=== PATIENT | female | born 1955 | race Caucasian/White ===

== ENCOUNTER 2020-05-15 07:27 | Outpatient (CLI) | payer MEDICARE, OTHER ==
[2020-05-15 17:57] LABS: SARS-CoV-2 MS2 Positive; SARS-CoV-2 N Gene Negative; SARS-CoV-2 S Gene Negative; SARS-CoV-2 by NAA Not Detected (NotDetected); SARS-CoV-2 orf1ab Negative
== END 2020-05-15 07:28 | disposition home or self-care (01) ==
LOC: LABBT 07:27
PROVIDERS: ATTEND Family Medicine
DX: Z12.11 Encounter for screening for malignant neoplasm of colon (principal); K21.9 Gastro-esophageal reflux disease without esophagitis; E66.3 Overweight; K76.0 Fatty (change of) liver, not elsewhere classified; Z20.828 Contact with and (suspected) exposure to other viral communicable diseases
CPT/HCPCS: 87635; U0003

== ENCOUNTER 2020-05-18 12:14 | Day surgery (SDC) | payer MEDICARE ==
[2020-05-16 11:48] VITALS: BMI 50.3
[~2020-05-18 12:14] MED LIST: PROPOFOL 200 MG/20 ML VIAL ONE
--- NOTE | 2020-05-18 18:36 | OP ---
DATE OF PROCEDURE: 05/18/2020 TITLE OF PROCEDURE: Colonoscopy with snare polypectomy. PREPROCEDURE DIAGNOSES: 1. Colon cancer screening. 2. Distant history of hyperplastic colon polyp. 3. Last colonoscopy in 2004. POSTPROCEDURE DIAGNOSES: 1. Exam to cecum; good bowel preparation. 2. Qhim-or-mqupsilc sigmoid diverticulosis. 3. Two diminutive rectal polyps, removed by cold snare technique. 4. Hypertrophied anal papilla. 5. Small internal hemorrhoids. 6. Otherwise normal colonoscopy. PROCEDURE IN DETAIL: Written informed consent was obtained. Upon completion of the EGD, the patient was repositioned for the colonoscopy. Total intravenous anesthesia was administered by Dr. Lj Sorto. The patient was placed in the left lateral decubitus position. A digital rectal exam was performed, that revealed small perianal tags. A Pentax video colonoscope was inserted through the anal canal and advanced under direct visualization to the cecum. Position in the cecum was verified by clear identification of the ileocecal valve and the appendiceal orifice. The quality of the bowel preparation was good. Each colon segment was examined carefully as the colonoscope was slowly withdrawn from the cecum. Vascular pattern and haustral folds appeared normal. Many [id number] diverticular orifices were noted in the sigmoid colon. There was no evidence of infection or hemorrhage from the diverticula. In the rectum, two diminutive sessile polyps, measuring about 2 to 3 mm in diameter, were identified and removed by cold snare technique. Both polyps were retrieved for histology. No other synchronous polyps were identified. A retroflexed exam in the rectum demonstrated hypertrophied anal papilla and small internal hemorrhoids, that were not actively bleeding. The colon was decompressed as the colonoscope was completely removed from the patient. There were no immediate complications. She was transferred to the day stay surgery area for postprocedure monitoring. RECOMMENDATIONS: 1. Await pathology results. 2. Ask the patient to call me in 1 week for pathology results. 3. Pending pathology results, recommend repeating colonoscopy in 5 to 10 years. 4. High-fiber diet. 5. Resume previous medications. 6. Follow up in GI Clinic in 6 to 8 weeks. Job ID: [id number]
--- NOTE | 2020-05-18 18:40 | OP ---
DATE OF PROCEDURE: 05/18/2020 TITLE OF PROCEDURE: Esophagogastroduodenoscopy with biopsy. PREPROCEDURE DIAGNOSIS: Persistent reflux despite medical therapy. POSTPROCEDURE DIAGNOSES: 1. Exam to second portion of duodenum. 2. A 1 to 2 cm sliding hiatal hernia. 3. No erosive esophagitis or esophageal ulcer identified. 4. Scattered benign-appearing polyps in the fundus and body, biopsied. 5. No gastric ulcer. 6. Normal duodenum. PROCEDURE IN DETAIL: Written informed consent was obtained. The patient was brought to the endoscopy suite. Total intravenous anesthesia was administered by Dr. Danny Sorto. The patient was placed in the left lateral decubitus position. A bite block was inserted into the mouth. A Pentax video diagnostic gastroscope was introduced into the oral cavity and the esophagus was carefully intubated. The gastroscope was advanced under direct visualization to the 2nd portion of the duodenum. Endoscopic findings revealed a small sliding hiatal hernia about 1 to 2 cm in length, located at 35 cm from the incisors. Biopsies were obtained in the lower esophagus just proximal to the hiatal hernia. There was no evidence of esophageal erosion or ulcer. The stomach was then entered and carefully examined. This included a retroflexed view of the cardia and fundus. Numerous small sessile polyps were identified in the gastric fundus and proximal body, consistent with fundic polyps. Multiple biopsies were obtained for histology. No gastric or duodenal ulcer was identified. The retroflexed exam was normal. The duodenum from the bulb to the second portion appeared normal. The stomach was decompressed as the endoscope was completely removed from the patient. There were no immediate complications. She was then repositioned for the colonoscopy. RECOMMENDATIONS: 1. Await biopsy results. 2. Ask the patient to call me in 1 week for biopsy results. 3. Resume previous medications. 4. Add famotidine 20 mg to 40 mg p.o. nightly for the next 6 to 8 weeks. 5. Follow up in GI clinic in 6 to 8 weeks. 6. Advise gradual 20- to 30-pound weight loss as this should also relieve some of the reflux symptoms. Job ID: [id number]
== END 2020-05-18 14:48 | disposition home or self-care (01) ==
LOC: SDC 12:14
PROVIDERS: ATTEND Internal Medicine Gastroenterology
PROC: 0DB38ZX Excision of Lower Esophagus, Via Natural or Artificial Opening Endoscopic, Diagnostic (ICD-10-PCS; principal; 2020-05-18)
PROC: 0DBP8ZX Excision of Rectum, Via Natural or Artificial Opening Endoscopic, Diagnostic (ICD-10-PCS; 2020-05-18)
DX: Z12.11 Encounter for screening for malignant neoplasm of colon (principal); K62.1 Rectal polyp; K31.7 Polyp of stomach and duodenum; K57.30 Diverticulosis of large intestine without perforation or abscess without bleeding; K64.4 Residual hemorrhoidal skin tags; K64.8 Other hemorrhoids; K44.9 Diaphragmatic hernia without obstruction or gangrene; K21.9 Gastro-esophageal reflux disease without esophagitis; K76.89 Other specified diseases of liver; E78.5 Hyperlipidemia, unspecified; I10 Essential (primary) hypertension; E03.9 Hypothyroidism, unspecified; M19.90 Unspecified osteoarthritis, unspecified site; E78.00 Pure hypercholesterolemia, unspecified; E66.3 Overweight; Z68.43 Body mass index [BMI] 50.0-59.9, adult; Z86.010 Personal history of colon polyps; Z79.1 Long term (current) use of non-steroidal anti-inflammatories (NSAID); Z79.82 Long term (current) use of aspirin; Z79.899 Other long term (current) drug therapy
CPT/HCPCS: 88305; 88312; 88313; J2704

== ENCOUNTER 2021-02-01 09:08 | Outpatient (CLI) | payer OTHER | END 2021-02-01 09:09 | disposition home or self-care (01) | LOC: BICMAMMO 09:08 | PROVIDERS: ATTEND Family Medicine | DX: Z12.31 Encounter for screening mammogram for malignant neoplasm of breast (principal); M81.0 Age-related osteoporosis without current pathological fracture; M85.851 Other specified disorders of bone density and structure, right thigh; M85.852 Other specified disorders of bone density and structure, left thigh; Z80.3 Family history of malignant neoplasm of breast | CPT/HCPCS: 77063; 77067; 77080 ==

== ENCOUNTER 2021-02-08 12:13 | Outpatient (CLI) | payer MEDICARE | END 2021-02-08 12:14 | disposition home or self-care (01) | LOC: BICMRI 12:13 | PROVIDERS: ATTEND Specialist | DX: M48.062 Spinal stenosis, lumbar region with neurogenic claudication (principal); M51.17 Intervertebral disc disorders with radiculopathy, lumbosacral region; M47.816 Spondylosis without myelopathy or radiculopathy, lumbar region | CPT/HCPCS: 72148 ==

== ENCOUNTER 2022-08-14 09:23 | Outpatient (CLI) | payer MEDICARE | END 2022-08-14 09:24 | disposition home or self-care (01) | LOC: BICMAMMO 09:23 | PROVIDERS: ATTEND Family Medicine | DX: Z12.31 Encounter for screening mammogram for malignant neoplasm of breast (principal); M81.0 Age-related osteoporosis without current pathological fracture; M85.851 Other specified disorders of bone density and structure, right thigh; M85.852 Other specified disorders of bone density and structure, left thigh; Z80.3 Family history of malignant neoplasm of breast | CPT/HCPCS: 77063; 77067; 77080 ==

== ENCOUNTER 2023-06-25 09:08 | Outpatient (CLI) | payer MEDICARE | END 2023-06-25 09:09 | disposition home or self-care (01) | LOC: BICRAD 09:08 | PROVIDERS: ATTEND Family Medicine | DX: M53.3 Sacrococcygeal disorders, not elsewhere classified (principal) | CPT/HCPCS: 72220 ==

== ENCOUNTER 2023-09-03 10:44 | Outpatient (CLI) | payer MEDICARE | END 2023-09-03 10:45 | disposition home or self-care (01) | LOC: BICMAMMO 10:44 | PROVIDERS: ATTEND Family Medicine | DX: Z12.31 Encounter for screening mammogram for malignant neoplasm of breast (principal); Z80.3 Family history of malignant neoplasm of breast | CPT/HCPCS: 77063; 77067 ==

== ENCOUNTER 2025-06-28 08:29 | Outpatient (CLI) | payer MEDICARE | END 2025-06-28 08:30 | disposition home or self-care (01) | LOC: BICMAMMO 08:29 | PROVIDERS: ATTEND Obstetrics & Gynecology | DX: Z12.31 Encounter for screening mammogram for malignant neoplasm of breast (principal); Z78.0 Asymptomatic menopausal state; M81.0 Age-related osteoporosis without current pathological fracture; Z80.3 Family history of malignant neoplasm of breast | CPT/HCPCS: 77063; 77067; 77080 ==